=== PATIENT | male | born 2000 | race Two or more races ===

== ENCOUNTER 2024-12-16 09:40 | Day surgery (SDC) | payer MEDICAID, SELFPAY ==
[2024-12-16] VITALS (8 sets, daily range): BP systolic 118–150; BP diastolic 70–91; PULSE 60–91; RESP 18–22; TEMP 36.6–37.1; O2SAT 93–100; BMI 31.1
[2024-12-16] MEDS: BENZOCAINE 20% (Hurricaine) SPRAY 1 DOSE TOP (11:32)
[2024-12-16] MEDS: MIDAZOLAM INJ 1 MG/ML VIAL 2 ML (ASD USE ONLY) 2 MG IVP (11:33)
[2024-12-16] MEDS: fentaNYL CIT INJ 50 mCg/ML AMP 2ML (ASD USE ONLY) IVP (11:33)
[2024-12-16] MEDS: RINGERS LACTATED 500 ML 500 ML 20 ML IV (11:33)
== END 2024-12-16 12:23 | disposition home or self-care (01) ==
PROVIDERS: PCP Family Medicine; Referring Provider Internal Medicine Gastroenterology; Visit Provider Internal Medicine Gastroenterology
PROC: (CPT 43239; principal; 2024-12-16 10:15)
DX: K29.70 Gastritis, unspecified, without bleeding (principal); K44.9 Diaphragmatic hernia without obstruction or gangrene
CPT/HCPCS: 43239; A4649; J1200; J2250; J3010; J7120; A9270

== ENCOUNTER 2024-12-18 07:10 | Day surgery (SDC) | payer MEDICAID, SELFPAY ==
[2024-12-17 14:03] VITALS: BMI 31.2
[2024-12-18] VITALS (10 sets, daily range): BP systolic 115–135; BP diastolic 71–97; PULSE 61–89; RESP 14–23; TEMP 36.7–37.6; O2SAT 96–100; BMI 29.8
[2024-12-18] MEDS: RINGERS LACTATED 500 ML 500 ML 20 ML IV (08:37)
[2024-12-18] MEDS: MIDAZOLAM INJ 1 MG/ML VIAL 2 ML (ASD USE ONLY) 2 MG IVP (08:41)
[2024-12-18] MEDS: fentaNYL CIT INJ 50 mCg/ML AMP 2ML (ASD USE ONLY) IVP (08:41)
== END 2024-12-18 09:42 | disposition home or self-care (01) ==
PROVIDERS: PCP Family Medicine; Referring Provider Internal Medicine Gastroenterology; Visit Provider Internal Medicine Gastroenterology
PROC: 0DBE8ZX Excision of Large Intestine, Via Natural or Artificial Opening Endoscopic, Diagnostic (ICD-10-PCS; CPT 45380; principal; 2024-12-18 08:15)
DX: D12.3 Benign neoplasm of transverse colon (principal); K64.9 Unspecified hemorrhoids; R10.84 Generalized abdominal pain; K92.1 Melena
CPT/HCPCS: 45380; A4649; J1200; J2250; J3010; J7120